=== PATIENT | male | born 1960 | race Caucasian/White ===

== ENCOUNTER 2017-02-20 11:18 | Emergency (ER) | payer BC ==
[2017-02-20] MEDS ORDERED: NORMAL SALINE 1000 ML 1,000 ML IV ONE (11:28)
[2017-02-20] MEDS ORDERED: KETOROLAC TROMETHAMINE INJ/PF 30 MG/1 ML SDV IV ONE (11:28)
--- NOTE | 2017-02-20 11:29 | ER Document Report ---
ED Medical Screen (RME) - General Chief Complaint: Abdominal Pain Stated Complaint: ABDOMINAL PAIN Time Seen by Provider: 02/20/17 11:28 Notes: Patient presents with left-sided abdominal pain that is sharp and radiates to the back. 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 However the colostomy has subsequently been taken down. He states this feels different compared to that pain. TRAVEL OUTSIDE OF THE [place] IN LAST 30 DAYS: No - Related Data Allergies/Adverse Reactions: No Known Allergies Allergy (Verified 02/20/17 11:20) Home Medications: Current Home Medications Diclofenac Sodium/Misoprostol [Diclofenac-Misoprost 75-200 Tb] 1 each PO BID [History] Mecobal/Levomefolat Ca/B6 Phos [v-Lbajrg-W0-B12 Tablet] 1 each PO BID 02/20/17 [ History] Omeprazole [Omeprazole] 20 mg PO DAILY 02/20/17 [History] Omeprazole [Omeprazole] 20 mg PO QPM 02/20/17 [History] Tramadol HCl [Tramadol HCl] 50 mg PO PRN PRN 02/20/17 [History] Past Medical History - Past Medical History Cardiac Medical History: Denies: Hx Coronary Artery Disease, Hx Heart Attack, Hx Hypertension Pulmonary Medical History: Denies: Hx Asthma, Hx Bronchitis, Hx COPD, Hx Pneumonia Neurological Medical History: Denies: Hx Cerebrovascular Accident, Hx Seizures GI Medical History: Musculoskeltal Medical History: Reports Hx Arthritis - rt shoulder Infectious Medical History: Past Surgical History: Denies: Hx Pacemaker - Immunizations Hx Diphtheria, Pertussis, Tetanus Vaccination: Yes - unsure when Physical Exam - Vital signs Vitals: Temp Pulse Resp BP Pulse Ox 98.1 F 69 18 136/83 H 97 02/20/17 11:21 02/20/17 11:21 02/20/17 11:21 02/20/17 11:21 02/20/17 11:21 Course - Vital Signs Vital signs: Temp Pulse Resp BP Pulse Ox 98.1 F 69 18 136/83 H 97 02/20/17 11:21 02/20/17 11:21 02/20/17 11:21 02/20/17 11:21 02/20/17 11:21
[2017-02-20 12:01] LABS: AMORPHOUS SEDIMENT,URINE TRACE /HPF; APPEARANCE,URINE CLOUDY; BILIRUBIN,URINE NEGATIVE (NEGATIVE); GLUCOSE, URINE NEGATIVE (NEGATIVE); KETONES,URINE TRACE mg/dL (NEGATIVE); LEUKOCYTE ESTERASE,URINE NEGATIVE (NEGATIVE); NITRITE,URINE NEGATIVE (NEGATIVE); PROTEIN,URINE 30 mg/dL (NEGATIVE); URINE SPECIFIC GRAVITY 1.013; UROBILINOGEN,URINE NEGATIVE mg/dL (<2.0)
[2017-02-20 12:07] LABS: ABSOLUTE LYMPHOCYTES (AUTO) 0.7 10^3/uL (0.5-4.7); ABSOLUTE MONOCYTES (AUTO) 0.4 10^3/uL (0.1-1.4); ABSOLUTE NEUT (AUTO) 10.9 10^3/uL (1.7-8.2); BASOPHILS % (AUTO) 0.1 % (0-2); EOSINOPHILS % (AUTO) 0.2 % (0-6); HEMATOCRIT 45.8 % (37.9-51.0); HEMOGLOBIN 15.7 g/dL (13.5-17.0); HGB HCT DIFFERENCE 1.3; LYMPHOCYTES % (AUTO) 6.2 % (13-45); MEAN CORPUSCULAR HEMOGLOBIN 29.3 pg (27.0-33.4); MEAN CORPUSCULAR HGB CONC 34.2 g/dL (32.0-36.0); MEAN CORPUSCULAR VOLUME 86 fl (80-97); MONOCYTES % (AUTO) 3.3 % (3-13); RED BLOOD COUNT 5.35 10^6/uL (4.35-5.55); RED CELL DISTRIBUTION WIDTH 14.8 % (11.5-14.0); SEGMENTED NEUTROPHILS % (AUTO) 90.2 % (42-78); WHITE BLOOD COUNT 12.1 10^3/uL (4.0-10.5)
[2017-02-20 12:40] LABS: ALANINE AMINOTRANSFERASE 61 U/L (21-72); ALBUMIN 4.7 g/dL (3.5-5.0); ALKALINE PHOSPHATASE 74 U/L (38-126); ANION GAP 16 (5-19); ASPARTATE AMINO TRANSFERASE 30 U/L (17-59); BILIRUBIN,DIRECT 0.4 mg/dL (0.0-0.4); BILIRUBIN,TOTAL 0.6 mg/dL (0.2-1.3); BLOOD UREA NITROGEN 23 mg/dL (7-20); CALCIUM 9.4 mg/dL (8.4-10.2); CARBON DIOXIDE 19 mmol/L (22-30); CHLORIDE 110 mmol/L (98-107); CREATININE RESULT 1.45 mg/dL (0.52-1.25); GLUCOSE 123 mg/dL (75-110); LIPASE 62.5 U/L (23-300); POTASSIUM 4.3 mmol/L (3.6-5.0); SODIUM 145.1 mmol/L (137-145); TOTAL PROTEIN 6.9 g/dL (6.3-8.2)
[2017-02-20] MEDS ORDERED: PHENAZOPYRIDINE HCL 200 MG TABLET PO ONE (12:57)
[2017-02-20] MEDS ORDERED: MORPHINE SULFATE 10 MG/ML INJ IV ONE (12:57)
--- NOTE | 2017-02-20 14:02 | RADIOLOGY REPORT (SQ) ---
EXAM DESCRIPTION: CT LTD RENAL STONE PROTOCOL ON COMPLETED DATE/TIME: 02/20/2017 1:41 pm REASON FOR STUDY: flank pain, hematuria COMPARISON: 06/15/2014 TECHNIQUE: CT scan of the abdomen and pelvis performed without intravenous or oral contrast. Images reviewed with lung, soft tissue, and bone windows. Reconstructed coronal and sagittal MPR images revi ewed. All images stored on PACS. All CT scanners at this facility use dose modulation, iterative reconstruction, and/or weight based d osing when appropriate to reduce radiation dose to as low as reasonably achievable (ALARA). [facility]: Dose Right [facility]: CareDose [facility]: Dose Right [facility]: Teradose 4D [facility]: Smart [employer] Technology RADIATION DOSE: Up-to-date CT equipment and radiation dose reduction techniques were employed. CTDIv ol: 8.4 mGy. DLP: 433 mGy-cm.mGy. LIMITATIONS: None. FINDINGS: LOWER CHEST: Stable subcentimeter pleural-based nodule in the middle lobe. NON-CONTRASTED LIVER, SPLEEN, ADRENALS: Evaluation limited by lack of IV contrast. No identified sign ificant masses. PANCREAS: No masses. No peripancreatic inflammatory changes. GALLBLADDER: No identified stones by CT criteria. No inflammatory changes to suggest cholecystitis. RIGHT KIDNEY AND URETER: No suspicious masses. Assessment limited by lack of IV contrast. Renal david culi measuring up to about 1 mm. No hydronephrosis or hydroureter. LEFT KIDNEY AND URETER: No suspicious masses. Assessment limited by lack of IV contrast. Renal calc christine measuring up to about 4 mm. 3 mm stone in the left ureter at the level of L4-5. Mild hydroneph rosis. AORTA AND RETROPERITONEUM: No aneurysm. No retroperitoneal masses or adenopathy. BOWEL AND PERITONEAL CAVITY: Anastomosis sigmoid colon. No obvious masses or inflammatory changes. N o free fluid. APPENDIX: Not visualized. PELVIS, BLADDER, AND ABDOMINAL WALL:No abnormal masses. No free fluid. Bladder normal. BONES: No significant findings. OTHER: No other significant finding. IMPRESSION: 3 mm stone left ureter. Mild hydronephrosis. COMMENT: Quality ID # [id number]: Final reports with documentation of one or more dose reduction techniques (e.g., Automated exposure control, adjustment of the mA and/or kV according to patient size, use of iterative reconstruction technique) TECHNICAL DOCUMENTATION: JOB ID: [id number]- All Rights Reserved
--- NOTE | 2017-02-20 14:46 | ER Document Report ---
ED General - General Mode of Arrival: Ambulatory Information source: Patient TRAVEL OUTSIDE OF THE [place] IN LAST 30 DAYS: No - HPI Onset: Yesterday <AMINA SNEED - Last Filed: 02/20/17 16:28> <WASHINGTON JACOBSEN - Last Filed: 02/20/17 19:26> - General Chief Complaint: Abdominal Pain Stated Complaint: ABDOMINAL PAIN Time Seen by Provider: 02/20/17 11:28 Notes: Patient is a 56 year old male presenting to the emergency department complaining of back pain. Patient states he was woken up from his sleep last night due to his back pain. Patient states the the pain is not exacerbated by movements. Since being in the emergency department, patient states that the pain is intermittent. Patient states that he has some chills associated with his back pain. (AMINA SNEED) Pain is described as left flank pain that radiates anterior to his left lower quadrant. (WASHINGTON JACOBSEN) - Related Data Allergies/Adverse Reactions: No Known Allergies Allergy (Verified 02/20/17 11:20) Home Medications: Current Home Medications Diclofenac Sodium/Misoprostol [Diclofenac-Misoprost 75-200 Tb] 1 each PO BID [History] Mecobal/Levomefolat Ca/B6 Phos [d-Ehzajx-S0-B12 Tablet] 1 each PO BID 02/20/17 [ History] Omeprazole [Omeprazole] 20 mg PO DAILY 02/20/17 [History] Omeprazole [Omeprazole] 20 mg PO QPM 02/20/17 [History] Tramadol HCl [Tramadol HCl] 50 mg PO PRN PRN 02/20/17 [History] Past Medical History - General Information source: Patient - Social History Smoking Status: Never Smoker Chew tobacco use (# tins/day): No Frequency of alcohol use: None Drug Abuse: None Patient has suicidal ideation: No Patient has homicidal ideation: No - Past Medical History Cardiac Medical History: Pulmonary Medical History: GI Medical History: Musculoskeltal Medical History: Reports Hx Arthritis - rt shoulder Infectious Medical History: Past Surgical History: Reports: Hx Appendectomy, Hx Orthopedic Surgery - shoulder, Hx Rectal Surgery - colon rupture - Immunizations Hx Diphtheria, Pertussis, Tetanus Vaccination: Yes - unsure when Hx Pneumococcal Vaccination: 04/08/08 <AMINA SNEED - Last Filed: 02/20/17 16:28> - Social History Family History: Reviewed & Not Pertinent <WASHINGTON JACOBSEN - Last Filed: 02/20/17 19:26> Review of Systems - Review of Systems Constitutional: See HPI, Chills EENT: No symptoms reported Cardiovascular: No symptoms reported Respiratory: No symptoms reported Gastrointestinal: No symptoms reported Genitourinary: No symptoms reported Male Genitourinary: No symptoms reported Musculoskeletal: See HPI, Back pain Skin: No symptoms reported Hematologic/Lymphatic: No symptoms reported Neurological/Psychological: No symptoms reported -: Yes All other systems reviewed and negative <AMINA SNEED - Last Filed: 02/20/17 16:28> Physical Exam <AMINA SNEED - Last Filed: 02/20/17 16:28> <WASHINGTON JACOBSEN - Last Filed: 02/20/17 19:26> - Vital signs Vitals: Temp Pulse Resp BP Pulse Ox 98.1 F 69 18 136/83 H 97 02/20/17 11:21 02/20/17 11:21 02/20/17 11:21 02/20/17 11:21 02/20/17 11:21 - Notes Notes: GENERAL: Alert, interacts well. No acute distress. HEAD: Normocephalic, atraumatic. EYES: Pupils equal, round, and reactive to light. Extraocular movements intact. ENT: Oral mucosa moist, tongue midline. NECK: Full range of motion. Supple. Trachea midline. LUNGS: Clear to auscultation bilaterally, no wheezes, rales, or rhonchi. No respiratory distress. HEART: Regular rate and rhythm. No murmurs, gallops, or rubs. ABDOMEN: Soft, non-tender. Non-distended. Bowel sounds present in all 4 quadrants. EXTREMITIES: Moves all 4 extremities spontaneously. No edema, radial and dorsalis pedis pulses 2/4 bilaterally. No cyanosis. No CVA tenderness. NEUROLOGICAL: Alert and oriented x3. Normal speech. PSYCH: Normal affect, normal mood. SKIN: Warm, dry, normal turgor. No rashes or lesions noted. (AMINA SNEED) Course - Laboratory Result Diagrams: 02/20/17 11:48 02/20/17 11:48 <AMINA SNEED - Last Filed: 02/20/17 16:28> - Laboratory Result Diagrams: 02/20/17 11:48 02/20/17 11:48 <WASHINGTON JACOBSEN - Last Filed: 02/20/17 19:26> - Re-evaluation Re-evalutation: 02/20/17 15:02 CBC shows slight leukocytosis of 12.1, CMP shows some mild acute renal failure with a BUN of 23 and creatinine 1.45, suspect due to dehydration considering the CO2 of 19, patient is encouraged to follow-up with Elder Gan MD as an outpatient as this is new, urinalysis supports dehydration with trace ketones, also supports kidney stone with small blood even though there is only 7 RBCs, no evidence of infection, CT scan renal protocol shows left-sided stone at present I see no reason why with this will not pass on its own, no evidence of infection, no need for intervention. Patient discharged home with Flomax, Pyridium, limited number of Percocet and ibuprofen. (WASHINGTON JACOBSEN) - Vital Signs Vital signs: Temp Pulse Resp BP Pulse Ox 97.9 F 75 16 125/88 H 99 02/20/17 15:48 02/20/17 15:48 02/20/17 15:48 02/20/17 15:48 02/20/17 15:48 - Laboratory Laboratory results interpreted by me: 02/20/17 02/20/17 02/20/17 11:36 11:48 11:48 WBC 12.1 H RDW 14.8 H Seg Neutrophils % 90.2 H Lymphocytes % 6.2 L Absolute Neutrophils 10.9 H Sodium 145.1 H Chloride 110 H Carbon Dioxide 19 L BUN 23 H Creatinine 1.45 H Est GFR (Non-Af Amer) 50 L Glucose 123 H Urine Protein 30 H Urine Ketones TRACE H Urine Blood SMALL H Discharge <AMINA SNEED - Last Filed: 02/20/17 16:28> <WASHINGTON JACOBSEN - Last Filed: 02/20/17 19:26> - Discharge Clinical Impression: Ureteral calculus, left Condition: Stable Disposition: HOME, SELF-CARE Instructions: Kidney Stone ([facility]) Prescriptions: Oxycodone HCl/Acetaminophen [Percocet 5-325 mg Tablet] 1 tab PO Q4HP PRN #15 tab PRN Reason: Phenazopyridine HCl [Pyridium 200 mg Tablet] 200 mg PO TID #15 tablet Tamsulosin HCl [Flomax 0.4 mg Cap.sr] 0.4 mg PO DAILY #7 cap.sr.24h Forms: Return to Work Referrals: [facility] [Provider Group] - Follow up as needed Scribe Attestation: 02/20/17 19:26 I personally performed the services described in the documentation, reviewed and edited the documentation which was dictated to the scribe in my presence, and it accurately records my words and actions. (WASHINGTON JACOBSEN) Scribe Documentation - Scribe Written by [employer]eye:: Randi Love, 02/20/2017 16:07 acting as scribe for :: Cresencio <AMINA SNEED - Last Filed: 02/20/17 16:28>
[2017-02-20 15:49] VITALS: BP 125/88
== END 2017-02-20 15:48 | disposition home or self-care (01) ==
LOC: ER 11:18
DX: N20.1 Calculus of ureter (principal); R10.9 Unspecified abdominal pain; M54.9 Dorsalgia, unspecified; Z79.899 Other long term (current) drug therapy
CPT/HCPCS: 99284; 96361; 96374; 96375; 36415; 83690; 85025; 80053; 81001; 76380; J1885; J2270; J3490; J7030

== ENCOUNTER 2018-03-13 20:51 | Emergency (ER) | payer OTHER ==
[2018-03-13 21:28] LABS: ABSOLUTE MONOCYTES (AUTO) 0.6 10^3/uL (0.1-1.4); ABSOLUTE NEUT (AUTO) 9.9 10^3/uL (1.7-8.2); BASOPHILS % (AUTO) 0.2 % (0-2); EOSINOPHILS % (AUTO) 0.2 % (0-6); HEMATOCRIT 45.4 % (37.9-51.0); HEMOGLOBIN 15.8 g/dL (13.5-17.0); MEAN CORPUSCULAR HEMOGLOBIN 29.4 pg (27.0-33.4); MEAN CORPUSCULAR HGB CONC 34.9 g/dL (32.0-36.0); MEAN CORPUSCULAR VOLUME 84 fl (80-97); MONOCYTES % (AUTO) 5.3 % (3-13); PLATELET COUNT 193 10^3/uL (150-450); RED BLOOD COUNT 5.38 10^6/uL (4.35-5.55); RED CELL DISTRIBUTION WIDTH 14.2 % (11.5-14.0); SEGMENTED NEUTROPHILS % (AUTO) 85.3 % (42-78); TOTAL CELLS COUNTED % (AUTO) 100 %; WHITE BLOOD COUNT 11.6 10^3/uL (4.0-10.5)
[2018-03-13] MEDS ORDERED: KETOROLAC TROMETHAMINE INJ/PF 30 MG/1 ML SDV IV ONE (21:35)
[2018-03-13] MEDS ORDERED: FENTANYL CITRATE INJ/PF 100 MCG/2 ML AMPUL IV ONE (21:35)
[2018-03-13] MEDS ORDERED: ONDANSETRON HCL INJ/PF 4 MG/2 ML SDV IV ONE (21:40)
[2018-03-13 21:45] LABS: ALANINE AMINOTRANSFERASE 47 U/L (21-72); ALKALINE PHOSPHATASE 71 U/L (38-126); ANION GAP 18 (5-19); ASPARTATE AMINO TRANSFERASE 38 U/L (17-59); BILIRUBIN,DIRECT 0.2 mg/dL (0.0-0.4); BILIRUBIN,TOTAL 0.6 mg/dL (0.2-1.3); BLOOD UREA NITROGEN 24 mg/dL (7-20); CALCIUM 9.7 mg/dL (8.4-10.2); CARBON DIOXIDE 24 mmol/L (22-30); CHLORIDE 100 mmol/L (98-107); GLUCOSE 118 mg/dL (75-110); LIPASE 31.7 U/L (23-300); POTASSIUM 4.4 mmol/L (3.6-5.0); SODIUM 141.5 mmol/L (137-145); TOTAL PROTEIN 7.6 g/dL (6.3-8.2)
[2018-03-13 21:48] LABS: APPEARANCE,URINE CLEAR; BILIRUBIN,URINE NEGATIVE (NEGATIVE); COLOR,URINE YELLOW; GLUCOSE, URINE NEGATIVE (NEGATIVE); KETONES,URINE 80 mg/dL (NEGATIVE); LEUKOCYTE ESTERASE,URINE NEGATIVE (NEGATIVE); NITRITE,URINE NEGATIVE (NEGATIVE); PROTEIN,URINE 30 mg/dL (NEGATIVE); URINE SPECIFIC GRAVITY 1.024; UROBILINOGEN,URINE NEGATIVE mg/dL (<2.0)
--- NOTE | 2018-03-13 22:09 | ER Document Report ---
ED General - General Chief Complaint: Flank Pain Stated Complaint: FLANK PAIN Time Seen by Provider: 03/13/18 21:21 Mode of Arrival: Ambulatory Notes: 58-year-old male in moderate distress presents to the emergency department for left flank pain that radiates to his left lower quadrant and into his groin. 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 Pain became excruciating which forced him to stop working. He endorses vomiting and nausea. He denies fever, chills, dyspnea, chest pain. He has a history of prior stone approximately 1 year ago that he states passed spontaneously. Of note, patient with history of diverticulitis with colonic rupture. He states that this pain is consistent with previous stone and in no way resembles pain related to diverticulitis. TRAVEL OUTSIDE OF THE [place] IN LAST 30 DAYS: No - HPI Patient complains to provider of: Severe flank pain - Related Data Allergies/Adverse Reactions: gluten Allergy (Verified 03/13/18 21:53) Past Medical History - Social History Smoking Status: Never Smoker Frequency of alcohol use: None Drug Abuse: None Family History: Reviewed & Not Pertinent Patient has suicidal ideation: No Patient has homicidal ideation: No - Past Medical History Cardiac Medical History: Denies: Hx Coronary Artery Disease, Hx Heart Attack, Hx Hypertension Pulmonary Medical History: Denies: Hx Asthma, Hx Bronchitis, Hx COPD, Hx Pneumonia Neurological Medical History: Denies: Hx Cerebrovascular Accident, Hx Seizures Renal/ Medical History: Denies: Hx Peritoneal Dialysis GI Medical History: Musculoskeletal Medical History: Reports Hx Arthritis - rt shoulder Infectious Medical History: Past Surgical History: Reports: Hx Appendectomy, Hx Orthopedic Surgery - shoulder, Hx Rectal Surgery - colon rupture. Denies: Hx Pacemaker - Immunizations Hx Diphtheria, Pertussis, Tetanus Vaccination: Yes - unsure when Hx Pneumococcal Vaccination: 04/08/08 Review of Systems - Review of Systems Constitutional: See HPI EENT: See HPI Cardiovascular: See HPI Respiratory: See HPI Gastrointestinal: See HPI Genitourinary: See HPI Male Genitourinary: No symptoms reported Musculoskeletal: No symptoms reported Skin: No symptoms reported Hematologic/Lymphatic: No symptoms reported Neurological/Psychological: No symptoms reported Physical Exam - Vital signs Vitals: Temp Pulse Resp BP Pulse Ox 98.4 F 68 18 155/85 H 98 03/13/18 21:03 03/13/18 21:03 03/13/18 21:03 03/13/18 21:03 03/13/18 21:03 Course - Re-evaluation Re-evalutation: 03/13/18 22:33 58-year-old male presents with flank pain consistent with previous kidney stone. Urinalysis showed evidence of moderate blood no evidence of infection. No electrolyte derangements. Patient received Zofran 4 mg IV, Toradol 15 mg IV 1 time, and fentanyl 50 mcg x1 with significant relief of symptoms. Abdominal exam showed no evidence of peritonitis, he did have some tenderness to deep palpation left lower quadrant which he said is typical with history of diverticulitis. Patient appears nontoxic and has no fever therefore I have low suspicion for acute diverticulitis or any evidence of kidney infection. Patient 's creatinine was 1.37, previous level was 1.45 1 year ago. Patient is able to void spontaneously therefore I do not suspect any post renal pathology. 03/13/18 22:36 - Vital Signs Vital signs: Temp Pulse Resp BP Pulse Ox 98.4 F 68 18 155/85 H 98 03/13/18 21:03 03/13/18 21:03 03/13/18 21:03 03/13/18 21:03 03/13/18 21:03 - Laboratory Result Diagrams: 03/13/18 21:14 03/13/18 21:14 Laboratory results interpreted by me: 03/13/18 03/13/18 03/13/18 21:12 21:14 21:14 WBC 11.6 H RDW 14.2 H Seg Neutrophils % 85.3 H Lymphocytes % 9.0 L Absolute Neutrophils 9.9 H BUN 24 H Creatinine 1.37 H Est GFR (Non-Af Amer) 53 L Glucose 118 H Urine Protein 30 H Urine Ketones 80 H Urine Blood MODERATE H Discharge - Discharge Clinical Impression: Flank pain, acute Condition: Stable Disposition: HOME, SELF-CARE Instructions: Kidney Stone ([facility]), Oral Narcotic Medication ([facility]), Toradol Injection ([facility]) Additional Instructions: Your symptoms should improve over the course of the next one week. If you continue to have pain for greater than one week or your pain is not controlled with the pain medications that you have been sent home with you need to return to the emergency department. Please also return if you develop fever, persistent vomiting, or any other symptoms that are concerning to you. You should take ibuprofen 600 mg every 6 hours and use the oral morphine as prescribed only for pain not controlled by ibuprofen. You are also been sent home with a medication called Flomax to help pass the stone. You've been given Zofran to assist with nausea. Please follow-up with urology in the next 2-3 days. Prescriptions: Ondansetron [Zofran Odt 4 mg Tablet (6 Tab/ER Disp)] 4 tab PO Q6H PRN 5 Days # 15 dspk PRN Reason: Oxycodone HCl [Oxycodone HCl 10 MG Tablet] 1 tab PO Q6H PRN #15 tablet PRN Reason: PAIN Oxycodone HCl/Acetaminophen [Percocet 5-325 mg Tablet] 1 tab PO Q4H PRN #15 tablet PRN Reason: Phenazopyridine HCl [Pyridium 200 mg Tablet] 200 mg PO TID #9 tablet Tamsulosin HCl [Flomax] 0.4 mg PO DAILY 7 Days #7 cap.er.24h Referrals: [facility] [Primary Care Provider] - Follow up as needed HOLDEN VICTOR MD [[facility] DEGR[facility]] - Follow up as needed
[2018-03-13 23:13] VITALS: BP 118/80
== END 2018-03-13 23:17 | disposition home or self-care (01) ==
LOC: ER 20:51
DX: R10.32 Left lower quadrant pain (principal); Z87.442 Personal history of urinary calculi
CPT/HCPCS: 99284; 96374; 96375; 36415; 83690; 85025; 80053; 81001; J3010; J1885; J2405

== ENCOUNTER → 2019-06-29 | Outpatient (CLI) | payer BC ==
--- NOTE | 2019-06-29 11:27 | RADIOLOGY REPORT (SQ) ---
EXAM DESCRIPTION: U/S ABDOMEN COMPLETE W/O DOP COMPLETED DATE/TIME: 06/29/2019 10:11 am REASON FOR STUDY: ABNORMAL RESULTS OF LIVER FUNCTION STUDI R94.5 ABNORMAL RESULTS OF LIVER FUNCTION STUDIES COMPARISON: None TECHNIQUE: Dynamic and static grayscale images acquired of the abdomen and recorded on PACS. Additio nal selected color Doppler and spectral images recorded. Note: Exam does not meet criteria for a complete doppler/duplex scan LIMITATIONS: Study limited due to acoustical interference from fat or from air in the bowel. FINDINGS: PANCREAS: Poorly seen secondary to acoustical interference from fat or from air in the bow el. No visualized masses. Duct normal caliber as seen. LIVER: No masses. No dilated ducts. LIVER VASCULATURE: Normal directional flow of the main portal vein and hepatic veins. GALLBLADDER: Sludge. No stones. Normal wall thickness. No pericholecystic fluid. ULTRASOUND-DETECTED TINSLEY'S SIGN: Negative. INTRAHEPATIC DUCTS AND COMMON DUCT:CBD and intrahepatic ducts normal caliber. No filling defects. INFERIOR VENA CAVA: Normal flow. AORTA: No aneurysm. RIGHT KIDNEY: Normal size. Normal echogenicity. No solid or suspicious masses. No hydronephros is. No calcifications. LEFT KIDNEY: Normal size. Normal echogenicity. No solid or suspicious masses. No hydronephrosi s. No calcifications. SPLEEN:Normal size. No solid masses. PERITONEAL AND PLEURAL SPACES: No ascites or effusions. OTHER: No other significant finding. IMPRESSION: NO SIGNIFICANT FINDING IN THE VISUALIZED ABDOMEN. TECHNICAL DOCUMENTATION: JOB ID: [id number] 2010 [employer]- All Rights Reserved Reading location - IP/workstation name: [email or web address]
== END ==
LOC: RAD 09:29
PROVIDERS: ATTEND Internal Medicine Gastroenterology
DX: R94.5 Abnormal results of liver function studies (principal)
CPT/HCPCS: 76700

== ENCOUNTER → 2020-02-08 | Outpatient (CLI) | payer BC ==
--- NOTE | 2020-02-08 13:29 | RADIOLOGY REPORT (SQ) ---
EXAM DESCRIPTION: CHEST 2 VIEWS IMAGES COMPLETED DATE/TIME: 02/08/2020 1:05 pm REASON FOR STUDY: PNEUMONIA COMPARISON: 03/17/2012 EXAM PARAMETERS: NUMBER OF VIEWS: two views TECHNIQUE: Digital Frontal and Lateral radiographic views of the chest acquired. RADIATION DOSE: NA LIMITATIONS: none FINDINGS: LUNGS AND PLEURA: Patchy right middle lobe opacities, new compared to prior exam No pleura l effusion or pneumothorax. MEDIASTINUM AND HILAR STRUCTURES: No masses or contour abnormalities. HEART AND VASCULAR STRUCTURES: Heart normal size. No evidence for failure. BONES: No acute findings. HARDWARE: None in the chest. OTHER: No other significant finding. IMPRESSION: New patchy right middle lobe opacities compatible with pneumonia. TECHNICAL DOCUMENTATION: JOB ID: [id number] 2010 [employer]- All Rights Reserved Reading location - IP/workstation name: [email or web address]
== END ==
LOC: RAD 12:25
PROVIDERS: ATTEND Internal Medicine
DX: J18.9 Pneumonia, unspecified organism (principal)
CPT/HCPCS: 71046